=== PATIENT | male | born 1960 | race Two or more races ===

== ENCOUNTER → 2018-09-20 | Outpatient (CLI) | payer MEDICAID | END | disposition home or self-care (01) | LOC: Rad HDHVI 09:18 | PROVIDERS: ATTEND Internal Medicine Cardiovascular Disease | DX: I08.8 Other rheumatic multiple valve diseases (principal); I25.10 Atherosclerotic heart disease of native coronary artery without angina pectoris; I10 Essential (primary) hypertension; I27.20 Pulmonary hypertension, unspecified; J90 Pleural effusion, not elsewhere classified; I31.3 Pericardial effusion (noninflammatory) | CPT/HCPCS: 93306 ==

== ENCOUNTER → 2018-10-01 | Outpatient (CLI) | payer MEDICAID ==
[~2018-10-01] VITALS: Ht 177.8 cm; Wt 107.5 kg
[~2018-10-01] MED LIST: ADENOSINE 90 MG in GIVE UN-DILUTED 0 ML IV ONE; ADENOSINE 90 MG/30 ML INJ IV ONE
== END | disposition home or self-care (01) ==
LOC: Rad HDHVI 09:34
PROVIDERS: ATTEND Internal Medicine Cardiovascular Disease
DX: I25.110 Atherosclerotic heart disease of native coronary artery with unstable angina pectoris (principal); I12.9 Hypertensive chronic kidney disease with stage 1 through stage 4 chronic kidney disease, or unspecified chronic kidney disease; E11.22 Type 2 diabetes mellitus with diabetic chronic kidney disease; N18.3 Chronic kidney disease, stage 3 (moderate); D64.9 Anemia, unspecified; Z95.820 Peripheral vascular angioplasty status with implants and grafts
CPT/HCPCS: 78452; 93005; 96374; 96375; A9500; J0153

== ENCOUNTER 2018-10-10 20:48 | Emergency (ER) | payer MEDICAID ==
[~2018-10-10] VITALS: Ht 177.8 cm; Wt 90.7 kg
[2018-10-10 21:35] LABS: Basophils # (auto) 0 uL; Eosinophils # (auto) 0.1 uL; Hemoglobin 7.5 g/dL (13.5-17.5); Lymphocytes # (auto) 0.3 uL; Neutrophils # (auto) 2.5 uL; White Blood Cell 3.2 10^3/uL (4.4-10.8)
[2018-10-10 21:37] LABS: Basophils % (auto) 0.5 % (0.0-2.0); Eosinophils % (auto) 4.6 % (0.0-7.0); Hematocrit 22.7 % (41.0-53.0); Lymphocytes % (auto) 9.7 % (10.0-50.0); Mean Corpuscular Hemoglobin 28.9 pg (28.0-32.0); Mean Corpuscular Hgb Conc. 33.1 g/dL (32.0-36.0); Mean Corpuscular Volume 87.5 fL (80.0-100.0); Monocytes # (auto) 0.2 uL; Monocytes % (auto) 7.4 % (0.0-12.0); Neutrophils % (auto) 77.8 % (37.0-80.0); Platelet Count (auto) 67 10^3/uL (140-450); Red Cell Distribution Width 15.3 % (11.8-14.3)
[2018-10-10 21:50] LABS: Albumin 2.6 g/dL (3.4-5.0); Calcium 7.7 mg/dL (8.5-10.1); Potassium 4.3 mmol/L (3.5-5.1)
[2018-10-10 21:56] LABS: BUN/Creatinine Ratio 22.7; Bilirubin, Total 0.6 mg/dL (0.2-1.0); Total Protein 6.8 g/dL (6.4-8.2)
[2018-10-10 21:58] LABS: INR 1.22 (0.9-1.15)
[2018-10-10] MEDS ORDERED: cloNIDine HCL 0.1 MG TAB PO ONE (22:45)
[2018-10-11] MEDS ORDERED: hydrALAZINE HCL 20 MG/ML VL IV PRN (00:30)
[2018-10-11] MEDS ORDERED: DEXTROSE (50%) 50ML SYRG IV PRN (00:45)
[2018-10-11] MEDS ORDERED: BUMETANIDE 1mg/4ml VIAL (0.25mg/ml) IV ONE (00:45)
[2018-10-11 02:19] VITALS: BP 180/95
[2018-10-11] MEDS ORDERED: ACCU-CHEK COMFORT CURVE STRIP VI SCH (07:00)
[2018-10-11] MEDS ORDERED: InsuLIN REG 1unit/0.01ml Soln (100units/ml) SC SCH ×2 (07:00→22:00)
[2018-10-11] MEDS ORDERED: hydrALAZINE HCL 25 MG TAB PO SCH (10:00)
[2018-10-11] MEDS ORDERED: CARVEDILOL 3.125 MG TAB PO SCH (10:00)
[2018-10-11] MEDS ORDERED: METOLAZONE 5 MG TAB PO SCH (10:00)
[2018-10-11] MEDS ORDERED: ATORVASTATIN 20 MG TAB PO SCH (22:00)
== END 2018-10-11 02:19 | disposition short-term general hospital (02) ==
LOC: EDBD 20:48 → ER 20:56 → TELE 20:57 → UNDOADMIN 20:57 → ER 10-11 02:19
DX: I62.00 Nontraumatic subdural hemorrhage, unspecified (principal); D64.9 Anemia, unspecified; I50.9 Heart failure, unspecified; E11.65 Type 2 diabetes mellitus with hyperglycemia; E11.22 Type 2 diabetes mellitus with diabetic chronic kidney disease; N18.6 End stage renal disease; I16.0 Hypertensive urgency; R18.8 Other ascites; R07.9 Chest pain, unspecified; Z99.2 Dependence on renal dialysis
CPT/HCPCS: 36415; 70450; 71045; 80053; 82010; 82962; 83880; 84443; 84484; 85025; 85610; 85730; 86850; 86900; 86901; 86920; 93005; 96374; 99291; J3490